=== PATIENT | male | born 1970 | race Caucasian/White ===

== ENCOUNTER 2024-08-13 01:39 | Emergency (ER) | payer OTHER ==
[~2024-08-13] VITALS: Ht 182.9 cm; Wt 125.0 kg
[2024-08-13] MEDS ORDERED: KETOROLAC TROMETHAMINE 60 MG/2 ML VIAL IM ONE (02:00)
[2024-08-13] MEDS ORDERED: CYCLOBENZAPRINE HCL 10 MG TAB PO ONE (02:00)
[2024-08-13] MEDS ORDERED: LIDOCAINE HCL 4% 1 EACH PATCH TD ONE (03:00)
[2024-08-13] MEDS ORDERED: TRAMADOL HCL 50 MG TAB PO ONE (03:00)
[2024-08-13 03:15] VITALS: BP 137/85
[2024-08-13] MEDS ORDERED: CYCLOBENZAPRINE HCL 10 MG HOME.PACK PO ONE (03:15)
== END 2024-08-13 03:16 | disposition home or self-care (01) ==
LOC: ED 01:39
DX: M54.50 Low back pain, unspecified (principal); G89.29 Other chronic pain; M62.830 Muscle spasm of back; Z98.890 Other specified postprocedural states
CPT/HCPCS: 96372; 99283; A9270; J1885

== ENCOUNTER 2024-08-17 13:19 | Emergency (ER) | payer MEDICAID ==
[~2024-08-17] VITALS: Ht 182.9 cm; Wt 123.6 kg
--- OUTSIDE RECORDS SUMMARY | 2024-08-17 13:25 | XMS ---
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 Gunner has no Care Guidelines for this patient. Todd VISIT COUNT (12 MO.) [address] (ID) TOTAL 3 NOTE: Visits indicate total known visits. ED/C VISIT TRACKING (12 MO.) 08/17/2024 13:19 [facility] [place] [facility]: Emergency COMPLAINT: - RIB PAIN 08/13/2024 01:40 [facility]NA[facility] Zeng OR TYPE: Emergency COMPLAINT: - BACK PAIN DIAGNOSES: - Low back pain, unspecified - Muscle spasm of back - Other chronic pain - Other specified postprocedural states 01/12/2024 13:00 [facility] Bryan Friedton ID (ID) TYPE: Emergency COMPLAINT: - ABD PAIN DIAGNOSES: 1. Abdominal distension (gaseous) 2. Noninfective gastroenteritis and colitis, unspecified 3. Nicotine dependence, unspecified, uncomplicated INPATIENT VISIT TRACKING (12 MO.) No inpatient visits to display in this time frame [id number]
[2024-08-17] MEDS ORDERED: OZEMPIC0.25 MG/02 (13:47)
[2024-08-17] MEDS ORDERED: SODIUM CHLORIDE 0.9% 1,000 ML IV ONE (14:00)
[2024-08-17] MEDS ORDERED: KETOROLAC TROMETHAMINE 30 MG/ML VIAL IV ONE (14:00)
[2024-08-17 14:28] LABS: BASOPHILS 0.8 % (0-2); HEMATOCRIT 42.6 % (35.0-50.0); HEMOGLOBIN 14.7 g/dL (12.0-18.0); LYMPHOCYTES 29.3 % (24-44); MCH 33.3 (27-36); MCHC 34.4 g/dl (30-36); MCV 96.9 fl (81-99); MONOCYTES 9.5 % (0-12); NEUTROPHILS 58.4 % (39-80); PLATELET COUNT 177 K/uL (140-440); RDW 14.4 (10.5-15.0)
[2024-08-17 14:42] LABS: ALBUMIN 3.7 g/dL (3.4-5.0); ALBUMIN/GLOBULIN RATIO 1.32 (1.1-2.4); ANION GAP 14.8 (7-21); BILIRUBIN, TOTAL 0.4 ng/dL (0.2-1.0); BUN/CREATININE RATIO 11.32 (6.0-28.6); CALCIUM 8.5 mg/dL (8.5-10.1); CREATININE, SERUM 1.06 mg/dL (0.70-1.30); POTASSIUM 3.8 mmol/L (3.5-5.1); PROTEIN, TOTAL 6.5 g/dL (6.4-8.2)
[2024-08-17 15:51] LABS: BILIRUBIN, URINE NEGATIVE (negative); BLOOD/HGB, URINE SMALL (Negative); KETONE, URINE NEGATIVE (Negative); LEUK ESTERASE, URINE NEGATIVE (negative); NITRITE, URINE NEGATIVE (negative)
[2024-08-17 15:58] LABS: BACTERIA, URINE NONE SEEN /hpf (negative); CASTS, URINE NONE SEEN \\lpf; COLLECTION TYPE, URINE CLEAN CATCH; CRYSTALS, URINE NONE SEEN (0-1+); EPITHELIAL CELLS, URINE 0 /lpf (0-1+); REFLEX CULTURE, URINE No (No); WHITE BLOOD CELLS, URINE 0-1 /HPF (0-5)
[2024-08-17] MEDS ORDERED: ONDANSETRON ODT4 MG SL (16:21)
[2024-08-17] MEDS ORDERED: KETOROLAC TROME10 MG PO (16:21)
[2024-08-17 16:35] VITALS: BP 116/73
== END 2024-08-17 16:35 | disposition home or self-care (01) ==
LOC: ED 13:19
PROVIDERS: Emergency Medicine
DX: K80.20 Calculus of gallbladder without cholecystitis without obstruction (principal); Z79.899 Other long term (current) drug therapy
CPT/HCPCS: 36415; 74176; 80053; 81001; 83690; 85025; 96374; 99284-25; J1885; J7030

== ENCOUNTER 2024-10-14 06:47 | Day surgery (SDC) | payer OTHER ==
[2024-10-07 10:23] VITALS: BP 127/69
[~2024-10-14] VITALS: Ht 182.9 cm; Wt 122.7 kg
[~2024-10-14 06:47] MED LIST: BUPIVACAINE HCL 0.25% 50 ML MDV ONE; CYCLOBENZAPRINE10 MG PO; ECHINACEA EXTR125 MG PO; KETOROLAC TROME10 MG PO; LACTATED RINGER'S 1,000 ML IV SCH; LIDOCAINE 1% W/ EPI 1:200,000 30 ML SDV ONE; LIPITOR20 MG; LISINOPRIL20 MG PO; MULTI-DAY PLUS1 EACH PO; ONDANSETRON ODT4 MG SL; OZEMPIC0.25 MG/02; SODIUM CHLORIDE 0.9% 60 ML IV ONE; TRAMADOL HCL50 MG PO; iopamidoL 30 ML VIAL ONE
[2024-10-14] MEDS ORDERED: LIDOCAINE HCL 1% 5 ML SDV INJ ONE (07:00)
[2024-10-14] MEDS ORDERED: HEParin SOD (PORCINE) 5,000 UNIT/ML SDV SUB-Q SCH (07:00)
[2024-10-14] MEDS ORDERED: CEFAZOLIN SODIUM 2 GM/20 ML SYR IV SCH (07:00)
[2024-10-14] MEDS ORDERED: metroNIDAZOLE/SODIUM CHLORIDE 500 MG/100 ML PIGGYBACK IV SCH (07:00)
[2024-10-14] MEDS ORDERED: IBLOOD GLUCOSE TEST STRIP 1 EA TEST VI PRN ×2 (07:00→09:30)
[2024-10-14] MEDS ORDERED: CEFAZOLIN SODIUM 3 GM/30 ML SYR IV SCH (07:00)
[2024-10-14 07:19] VITALS: BP 135/71
--- NOTE | 2024-10-14 07:39 | NUR ---
PT NOT AVAILABLE FOR VISIT. PROVIDED PRAYER.
[2024-10-14] MEDS ORDERED: fentaNYL citrate 100 MCG/2 ML VIAL ONE ×2 (08:11→08:14)
[2024-10-14] MEDS ORDERED: ondansetron HCL 4 MG/2 ML VIAL ONE (08:12)
[2024-10-14] MEDS ORDERED: SODIUM CHLORIDE 0.9% 20 ML IV ONE ×2 (08:12)
[2024-10-14] MEDS ORDERED: DEXAMETHASONE SOD PHOS 4 MG/ML VIAL ONE ×2 (08:12→08:21)
[2024-10-14] MEDS ORDERED: propofoL 200 MG/20 ML VIAL ONE (08:12)
[2024-10-14] MEDS ORDERED: dexmedeTOMIDine HCl 200 MCG/2 ML VIAL ONE (08:12)
[2024-10-14] MEDS ORDERED: LIDOCAINE HCL 2% 5 ML SDV ONE (08:12)
[2024-10-14] MEDS ORDERED: MAGNESIUM SULFATE 1 GM/2 ML VIAL ONE (08:12)
[2024-10-14] MEDS ORDERED: ROCURONIUM BROMIDE 50 MG/5 ML SYR ONE ×2 (08:12→09:03)
[2024-10-14] MEDS ORDERED: ACETAMINOPHEN 1,000 MG/100 ML VIAL ONE (08:12)
[2024-10-14] MEDS ORDERED: KETAMINE in NS 50 MG/5 ML SYR ONE (08:14)
[2024-10-14] MEDS ORDERED: metroNIDAZOLE/SODIUM CHLORIDE 500 MG/100 ML PIGGYBACK IV ONE (08:30)
[2024-10-14] MEDS ORDERED: ePHEDrine sulfate 50 MG/ML AMP ONE (08:46)
[2024-10-14] MEDS ORDERED: SEVOFLURANE 250 ML BTL INH ONE (08:47)
[2024-10-14] MEDS ORDERED: PHENYLEPHRINE HCL 10 MG/ML VIAL ONE (08:51)
[2024-10-14] MEDS ORDERED: SUGAMMADEX SODIUM 200 MG/2 ML ML ONE (09:24)
[2024-10-14] MEDS ORDERED: ondansetron HCL 4 MG/2 ML VIAL IV PRN ×2 (09:30→10:15)
[2024-10-14] MEDS ORDERED: KETOROLAC TROMETHAMINE 30 MG/ML VIAL IV PRN (09:30)
[2024-10-14] MEDS ORDERED: fentaNYL citrate 50 MCG/ML SDV IV PRN (09:30)
[2024-10-14] MEDS ORDERED: NALOXONE HCL 0.4 MG SYR IV PRN ×2 (09:30→10:15)
[2024-10-14] MEDS ORDERED: OXYCODONE HCL 5 MG TAB PO PRN (10:15)
[2024-10-14] MEDS ORDERED: PROCHLORPERAZINE EDISYLATE 10 MG/2 ML VIAL IV PRN (10:15)
[2024-10-14] MEDS ORDERED: HYDROmorphone HCL 1 MG/ML SYR IV PRN (10:15)
--- NOTE | 2024-10-14 10:37 | NUR ---
10/14/24 Martina Murguia 1000- PT ARRIVES TO THE PACU WITH A NATURAL AIRWAY ON 6L OF O2 VIA MASK. BREATHING IS EVEN AND UNLABORED. ALL MONITORS PUT IN PLACE. LR INFUSING IN PT R HAND. ABDOMEN IS SOFT AND NON DISTENDED. 4 LAP SITES IN TOTAL ON ABDOMEN. PT DENIES PAIN AND NAUSEA BY SHAKING HIS HEAD NO. ICE PACK PUT IN PLACE OVER SURGICAL SITE AND PILLOW PUT INPLACE FOR SPLINTING. PT EDUCATED ON SPLINTING. 1011- O2 TURNED OFF AND REMOVED. PT REPORTS 5/10 PAIN THAT IS TOLERABLE AND DOES NOT WANT ANYTHING AT THIS MOMENT. PT IS RESTING WITH HIS BROWS FURROWED.
[2024-10-14 11:11] VITALS: BP 157/79
--- NOTE | 2024-10-14 11:20 | NUR ---
1110-PT ARRIVES TO DAY SURGERY VIA STRETCHER, BEDSIDE REPORT RECEIVED FROM RN, PT A+O X4, PT DENIES NAUSEA BUT C/O 5/10 PAIN BUT REPORTS IT IS TOLERABLE. VSS ON 2L VIA NC, RR EVEN AND UNLABORED. PT EDUCATED ON SPLINTING W/ PILLOW FOR COUGHING. PT RESTING SAFELY IN BED W/ BEDRAILS UP X2 AND CALL LIGHT IN REACH. PT SIPPING ON WATER AND EATING PUDDING. NO FURTHER NEEDS AT THIS TIME, PLAN OF CARE DISCUSSED, PT VERBALIZES UNDERSTANDING.
--- NOTE | 2024-10-14 11:40 | NUR ---
PT STANDING AT BEDSIDE USING URINAL, PT VOIDED AND NOW SITTING ON SIDE OF BED PT DENIES NAUSEA AND REPORTS PAIN IS IMPROVING.
[2024-10-14 12:15] VITALS: BP 146/75
--- NOTE | 2024-10-14 12:15 | NUR ---
PT DRESSED INDEPENDENTLY AND IV REMOVED. PT GIVEN DISCHARGE INSTRUCTIONS AND PAPERWORK, ALL QUESTIONS ANSWERED, PT VERBALIZES UNDERSTANDING. PT DISCHARGED VIA W/C.
--- NOTE | 2024-10-14 13:28 | OR ---
[facility] [address], [place] [address] Signed DATE OF OPERATION: 10/14/2024 SURGEON: Erlin Arrieta MD PREOPERATIVE DIAGNOSES: Chronic cholecystitis with cholelithiasis. POSTOPERATIVE DIAGNOSES: Chronic cholecystitis with cholelithiasis. PROCEDURE: Laparoscopic cholecystectomy without intraoperative cholangiogram. ESTIMATED BLOOD LOSS: None. INDICATIONS: Alyssa is a 53-year-old gentleman with a body mass index of 38. He has been having pain in his right upper quadrant radiating through to his back. He went to the ER at least twice. On the CT scan. He has multiple calcified gallstones. The common bile duct is unremarkable. His liver was unremarkable. He had been asked to see me by his primary care provider. He told me he has cut down the food and his fatty foods and it has helped. 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 In the office, I gave him our brochure on the gallbladder. We discussed the location and function of the gallbladder. We discussed laparoscopic versus open cholecystectomy. He understands the expected intraop and postop course. We did review the risk including, but not limited to bleeding, infection, scarring, change in contour of the skin, damage to bowel, damage to main bile duct, incisional hernias and other unforeseen comorbidities. He had expressed understanding and wished to proceed. DESCRIPTION OF PROCEDURE: I met with Alyssa in our preop area. After this, we took him into the operating room and placed him in the supine position. He was placed under general endotracheal tube anesthesia. He has a very large tongue and mandible that took our anesthesia provider using the glidescope to place the ET tube. Alyssa was given preoperative antibiotics along with subcutaneous heparin. SCDs were utilized. He was prepped and draped in the usual sterile fashion. After this, we placed our trocars in their usual positions under direct visualization of the camera without difficulty. We realized immediately that his liver was quite away up underneath the subcostal margin and then his gallbladder was Electronically Signed By: ERLIN ARRIETA MD 10/14/24 1328 PATIENT NAME: ALYSSA WANG OPERATIVE REPORT DATE OF : 70 REPORT #: [id number] PHYSICIAN: ERLIN ARRIETA MD PCP: NO PRIMARY CARE PHYSICIAN REPORT IS CONFIDENTIAL AND NOT TO BE RELEASED WITHOUT AUTHORIZATION [facility] [address], [place] [address] Signed small underneath the liver by probably 5 or 6 cm. Therefore, we placed our fan retractor through the midline and had an additional nurse come and help hold the fan retractor. We dissected out the triangle of Calot bluntly and found that he had a stone stuck in the neck of the gallbladder as it was coming into the cystic duct. We had just enough room to place three sequential clips and then divided the cystic duct next to the gallbladder. We placed several clips on the cystic artery and it was divided as well. The gallbladder was then carefully removed from the gallbladder fossa with the help of cautery. After this, the gallbladder was passed off the field to our circulating nurse. Indeed he had multiple stones in the gallbladder, but one was impacted in the neck of the gallbladder as it came to the cystic duct. It was so impacted even our circulating nurse was unable to . After this, we used our laparoscopic suturing device to pass 0-Vicryl suture on either side of the fascia of the subxiphoid and the mid epigastric trocar sites. These were tied down to close the fascia primarily. All the gas was allowed to escape and all the trocars were then removed. We closed the fascia of the supraumbilical trocar site with interrupted [id number] and simple 0-Vicryl sutures. Local anesthetic was injected into all trocar sites. Each trocar site was then irrigated and suctioned out until clear. We closed the skin and dermis of each trocar site with interrupted 3-0 subcuticular Monocryl sutures. Dry gauze and tape was then applied to all incisions. Alyssa was then awakened from his anesthesia, extubated in the OR, and taken to recovery room in stable condition. Erlin Arrieta MD ALB/MODL /[id number] cc: MD Ronny Lemhan MD Copies: ERLIN ARRIETA MD, JAMES MD ~ Electronically Signed By: ERLIN ARRIETA MD 10/14/24 1328 PATIENT NAME: ALYSSA WANG OPERATIVE REPORT DATE OF : 70 REPORT #: [id number] PHYSICIAN: ERLIN ARRIETA MD PCP: NO PRIMARY CARE PHYSICIAN REPORT IS CONFIDENTIAL AND NOT TO BE RELEASED WITHOUT AUTHORIZATION
--- NOTE | 2024-10-15 18:08 | PATH ---
[facility] [address], [place] [address] Signed SPECIMEN(S): A GALLBLADDER AND STONES SPECIMEN SOURCE: A. GALLBLADDER AND STONES CLINICAL HISTORY: Cholecystitis FINAL PATHOLOGIC DIAGNOSIS: Gallbladder and stones: - Chronic calculous cholecystitis. JVR:clv MICROSCOPIC EXAMINATION: Histologic sections of all submitted blocks are examined by light microscopy. These findings, together with the gross examination, support the pathologic diagnosis. GROSS DESCRIPTION: The specimen, labeled and designated "Ruddy Wang, gallbladder and stones per requisition," is received in formalin and consists of Specimen: Surgically opened gallbladder. Dimensions: 6.3 x 3 x 2.4 cm. Serosa: Shannon-pink and smooth with moderate amount of attached yellow lobulated adipose. Cystic Duct: Unobstructed. Calculi: Presentyellow-green and multifaceted. Mucosa: Shannon and velvety. Wall thickness: 0.3 cm. Lymph node: No pericystic lymph nodes are grossly identified. Additional: None. Mortgage Loan Originator sections are submitted in (A1). AA (under the direct supervision of a pathologist) The Gross Description was prepared using a voice recognition system. The report was reviewed for accuracy; however, sound-alike word errors, addition and/or deletions may occur. If there is any question about this report, please contact Client Services. PERFORMING LABORATORY: Technical component was performed by [facility], [address] [place] [id number] (CLIA# [id number]). Professional interpretation was PATIENT NAME: SABA WANGN RADHA PATHOLOGY DATE OF : 70 REPORT #: [id number] PHYSICIAN: [facility] PCP: NO PRIMARY CARE PHYSICIAN REPORT IS CONFIDENTIAL AND NOT TO BE RELEASED WITHOUT AUTHORIZATION [facility] [address], [place] [address] Signed performed by [facility] - [address] [address] (CLIA#: [id number]). Diagnostician: David Keane MD Pathologist Electronically Signed 10/15/2024 Copies: ~ PATIENT NAME: KATHLEENALYSSA PATHOLOGY DATE OF : 70 REPORT #: [id number] PHYSICIAN: [facility] PCP: NO PRIMARY CARE PHYSICIAN REPORT IS CONFIDENTIAL AND NOT TO BE RELEASED WITHOUT AUTHORIZATION
== END 2024-10-14 12:15 | disposition home or self-care (01) ==
LOC: DS 06:47
PROVIDERS: ATTEND Colon & Rectal Surgery
PROC: 0FT44ZZ Resection of Gallbladder, Percutaneous Endoscopic Approach (ICD-10-PCS; principal; 2024-10-14 08:10)
DX: K80.10 Calculus of gallbladder with chronic cholecystitis without obstruction (principal); E11.9 Type 2 diabetes mellitus without complications; E78.5 Hyperlipidemia, unspecified; M54.16 Radiculopathy, lumbar region; E66.9 Obesity, unspecified; Z68.38 Body mass index [BMI] 38.0-38.9, adult; Z79.899 Other long term (current) drug therapy
CPT/HCPCS: 00790; A9270; J0131; J0690; J1100; J1644; J1885; J2003; J2371; J2405; J2704; J3010; J3475; J3490; J7121